=== PATIENT | male | born 1960 | race African-American/Black ===

== ENCOUNTER 2017-08-02 18:10 | Emergency (ER) | payer OTHER ==
[~2017-08-02] VITALS: Ht 180.3 cm; Wt 79.4 kg
[2017-08-02] MEDS ORDERED: MUCINEX DM ER1 EAC1 PO (22:32)
[2017-08-02] MEDS ORDERED: AIRBORNE EFFER1 EACH PO (22:32)
[2017-08-02] MEDS ORDERED: KETO10TA2 PO (22:32)
[2017-08-02] MEDS ORDERED: TESSALON PERLE100 MG PO (22:32)
== END 2017-08-02 22:52 | disposition home or self-care (01) ==
LOC: ER 18:10
DX: J11.1 Influenza due to unidentified influenza virus with other respiratory manifestations (principal); J06.9 Acute upper respiratory infection, unspecified

== ENCOUNTER 2020-12-24 08:00 | Outpatient (CLI) | payer OTHER ==
[~2020-12-24 08:00] MED LIST: AIRBORNE EFFER1 EACH PO; KETO10TA2 PO; MUCINEX DM ER1 EAC1 PO; TESSALON PERLE100 MG PO
== END 2020-12-24 08:30 | disposition home or self-care (01) ==
LOC: PPH VACUNA 08:00
DX: Z23 Encounter for immunization (principal)

== ENCOUNTER 2021-01-14 08:00 | Outpatient (CLI) | payer OTHER | END 2021-01-14 08:30 | disposition home or self-care (01) | LOC: PPH VACUNA 08:00 | DX: Z23 Encounter for immunization (principal) ==

== ENCOUNTER 2022-01-11 21:38 | Emergency (ER) | payer OTHER ==
[~2022-01-11] VITALS: Ht 180.3 cm; Wt 90.7 kg
== END 2022-01-12 01:17 ==
LOC: ER 21:38
DX: U07.1 COVID-19 (principal); E78.00 Pure hypercholesterolemia, unspecified; I10 Essential (primary) hypertension

== ENCOUNTER 2023-07-17 07:48 | Outpatient (CLI) | payer OTHER | END 2023-07-17 08:05 | disposition home or self-care (01) | LOC: MRI 07:48 | PROVIDERS: ATTEND Physical Medicine & Rehabilitation | DX: M51.16 Intervertebral disc disorders with radiculopathy, lumbar region (principal) | CPT/HCPCS: 72148 ==

== ENCOUNTER 2023-08-29 18:06 | Emergency (ER) | payer OTHER ==
[~2023-08-29] VITALS: Ht 180.3 cm; Wt 88.5 kg
[2023-08-29] MEDS ORDERED: KETOROLAC TROMETHAMINE 30 MG VIAL IM STA (21:08)
[2023-08-29] MEDS ORDERED: GUAIFENESIN 200 MG/10 ML BLIST.PACK PO STA (21:08)
== END 2023-08-29 21:22 | disposition home or self-care (01) ==
LOC: ER 18:07
DX: J10.1 Influenza due to other identified influenza virus with other respiratory manifestations (principal); Z20.822 Contact with and (suspected) exposure to COVID-19

== ENCOUNTER 2023-09-02 19:10 | Emergency (ER) | payer OTHER ==
[~2023-09-02] VITALS: Ht 180.3 cm; Wt 84.8 kg
[2023-09-02] MEDS ORDERED: LOSARTAN POTASS25 MG PO (19:32)
[2023-09-02] MEDS ORDERED: LISINOPRIL10 MG PO (19:32)
[2023-09-02] MEDS ORDERED: METHYLPREDNISOLONE SOD SUCC 125 MG VIAL IV ONE (22:00)
[2023-09-02] MEDS ORDERED: LEVALBUTEROL HCL 1.25 MG/3 ML SOLUTION IH SCH (22:00)
[2023-09-02] MEDS ORDERED: BENZONATATE 100 MG CAPSULE PO ONE (22:00)
[2023-09-02] MEDS ORDERED: IPRATROPIUM BROMIDE 0.5 MG/2.5 ML AMPUL.NEB IH SCH (22:00)
[2023-09-02] MEDS ORDERED: GUAIFENESIN 200 MG/10 ML BLIST.PACK PO SCH (22:00)
[2023-09-02 22:21] LABS: HEMATOCRIT 44.3 % (39.0-48.0); HEMOGLOBIN 15.2 g/dL (13-16.00); MEAN CELL VOLUME 92.2 fL (80.0-100.00); MEAN CORPUSCULAR HEMOGLOBIN 31.6 pg (27.00-32.0); MEAN CORPUSCULAR HGB CONC 34.3 g/dl (32.0-36.0); RED BLOOD COUNT 4.81 M/uL (4.00-6.00)
[2023-09-02 22:22] LABS: PLATELET COUNT 112 K/uL (150-450)
== END 2023-09-02 23:25 | disposition home or self-care (01) ==
LOC: ER 19:10
PROVIDERS: General Practice
DX: R53.81 Other malaise (principal); J45.909 Unspecified asthma, uncomplicated

== ENCOUNTER 2024-03-27 16:27 | Emergency (ER) | payer OTHER ==
[~2024-03-27] VITALS: Ht 180.3 cm; Wt 90.7 kg
[~2024-03-27 16:27] MED LIST changes: +LISINOPRIL10 MG PO; +LOSARTAN POTASS25 MG PO
[2024-03-27] MEDS ORDERED: BUTALB/ACETAMINOPHEN/CAFFEINE 1 TAB TABLET PO ONE (18:00)
[2024-03-27] MEDS ORDERED: 0.9 % SODIUM CHLORIDE 1,000 ML IV SCH (18:00)
[2024-03-27] MEDS ORDERED: ONDANSETRON HCL 2 MG/ML VIAL IV ONE (18:00)
[2024-03-27 18:49] LABS: HEMATOCRIT 44.6 % (39.0-48.0); HEMOGLOBIN 15.3 g/dL (13-16.00); MEAN CELL VOLUME 89.8 fL (80.0-100.00); MEAN CORPUSCULAR HEMOGLOBIN 30.9 pg (27.00-32.0); MEAN CORPUSCULAR HGB CONC 34.4 g/dl (32.0-36.0); RED BLOOD COUNT 4.97 M/uL (4.00-6.00); RED CELL DISTRIBUTION WIDTH 14.2 % (11.5-14.5)
[2024-03-27 18:52] LABS: PLATELET COUNT 104 K/uL (150-450)
[2024-03-27 19:01] LABS: ALBUMIN 3.6 gm/dL (3.4-5.0); BILIRUBIN TOTAL 0.92 mg/dL (0.3-1.2); CALCIUM 8.4 mg/dL (8.5-10.1); CREATININE SERUM 1.39 mg/dL (0.70-1.30); GFR 51.28; GLOBULINA 3.6 G/DL (2.4-3.5); POTASSIUM 3.67 mEq/L (3.5-5.1); TOTAL PROTEIN 7.2 gm/dL (6.4-8.2)
== END 2024-03-27 20:29 | disposition home or self-care (01) ==
LOC: ER 16:28
PROVIDERS: General Practice
DX: R50.9 Fever, unspecified (principal); Z20.822 Contact with and (suspected) exposure to COVID-19; I10 Essential (primary) hypertension

== ENCOUNTER 2024-03-28 14:11 | Emergency (ER) | payer OTHER ==
[~2024-03-28] VITALS: Ht 180.3 cm; Wt 90.7 kg
[2024-03-28] MEDS ORDERED: ONDANSETRON 4 MG TAB.RAPDIS PO ONE (15:00)
== END 2024-03-28 15:36 ==
LOC: ER 14:13
DX: A92.8 Other specified mosquito-borne viral fevers (principal)